=== PATIENT | female | born 1995 | race African-American/Black ===

== ENCOUNTER 2021-10-04 09:46 | Inpatient (IN) | payer BC, SELFPAY ==
[2021-10-04 10:20] LABS: BHCG - Serum Negative (NEGATIVE); Pregs Control Bar Appear? YES (CONTROL BAR)
[2021-10-04 10:21] LABS: Pregs Control Background? CLEAR/WHITE (CLR/WHITE)
[2021-10-04 10:24] LABS: #Lymphocytes 1.1 thou/uL (1.20-3.40); #Monocytes 0.4 thou/uL (0.11-0.59); #Neutrophils 4.6 thou/uL (1.40-6.50); %Basophils 0.1 % (0.0-1.0); %Eosinophils 0.2 % (0.0-10.0); %Lymphocytes 18.4 % (21.0-51.0); %Monocytes 5.7 % (0.0-10.0); %Neutrophils 75.6 % (42.0-75.0); Mean Corpuscular Hemoglobin 22.9 pg (27.0-31.0); Mean Corpuscular Volume 76.4 fL (78.0-98.0); Mean Platelet Volume 10.3 fL (7.4-10.4); Platelet Count 255 thou/uL (130-400); RBC Distribution Width 14.5 % (11.5-14.5); Red Blood Cell (RBC) Count 4.38 mill/uL (4.20-5.40); White Blood Cell (WBC) Count 6.1 thou/uL (4.8-10.8)
[2021-10-04 10:35] LABS: ALT (SGPT) 285 U/L (8-55); AST (SGOT) 339 U/L (5-34); Albumin 4.2 g/dL (3.5-5.0); Alkaline Phosphatase 165 U/L (40-110); Anion Gap 15 mmol/L (10-20); BUN (Urea Nitrogen) 8 mg/dL (7.0-18.7); Bilirubin, Total 0.9 mg/dL (0.2-1.2); Calc. Creatinine Clearance 0 mL/min (70-130); Calcium 9.4 mg/dL (7.8-10.44); Carbon Dioxide 22 mmol/L (22-29); Chloride 104 mmol/L (98-107); Estimated GFR 115; Globulin 3.6 g/dL (2.4-3.5); Glucose 106 mg/dL (70-105); Lipase 33 U/L (8-78); Potassium 4.2 mmol/L (3.5-5.1); Protein, Total 7.8 g/dL (6.0-8.3); Sodium 137 mmol/L (136-145)
[2021-10-04 11:22] LABS: Hypochromia SLIGHT = 6-15 cells (100X) (0-5/hpf); MDiff Complete? YES; Microcytosis SLIGHT = 6-15 cells (100X) (0-5/hpf); Platelet Morphology Comment Appears Adequate; Polychromasia SLIGHT = 2-3 cells (100X) (0-2/hpf)
[2021-10-04 11:29] LABS: Bilirubin Negative (Negative); Blood, Urine Negative (Negative); Clarity Clear (Clear); Glucose, Urine (Dipstick) Normal (Negative); Ketone, Urine Negative (Negative); Leukocyte Negative Leu/uL (Negative); Nitrite Negative (Negative); Protein, Urine (Dipstick) 10 mg/dL (Neg-Trace); Specific Gravity, Urine 1.025 (1.002-1.036); Urobilinogen 6 mg/dL (Less than 2)
[2021-10-04] MEDS ORDERED: Iopamidol-370 76% 500 ML 1 ML ONE (11:45)
[2021-10-04] MEDS ORDERED: Morphine 4 MG/ML VIAL ONE (12:18)
[2021-10-04] MEDS ORDERED: Ondansetron PF 4 MG/2 ML Vial ONE (12:18)
[2021-10-04] MEDS ORDERED: Ondansetron ODT 4 MG TAB PO PRN (14:56)
[2021-10-04] MEDS ORDERED: Ondansetron PF 4 MG/2 ML Vial IVP PRN (14:56)
[2021-10-04] MEDS ORDERED: Senokot S 8.6-50 MG TAB PO PRN (14:56)
[2021-10-04] MEDS ORDERED: Acetaminophen 325 MG TAB PO PRN (14:56)
[2021-10-04] MEDS ORDERED: Amlodipine 5 MG TAB PO SCH (15:30)
[2021-10-04 15:32] LABS: SARS-CoV-2 NAA Rapid Test Not Detected (NotDetected)
[2021-10-04] MEDS ORDERED: Amlodipine 5 MG TAB ONE (18:49)
[2021-10-04] MEDS: Sodium Chloride 0.9% 1,000 ML IV SCH (18:55)
[2021-10-04 19:59] VITALS: BMI 41.1
[2021-10-04] MEDS: Pantoprazole 40 MG VIAL IVP SCH (20:28)
[2021-10-05] MEDS: Sodium Chloride 0.9% 1,000 ML IV SCH ×2 (00:45→15:55)
[2021-10-05] MEDS: Ketorolac Tromethamine 30 MG/ML VIAL IVP PRN ×2 (06:02→15:55)
[2021-10-05 06:51] LABS: #Eosinphils 0.1 thou/uL (0.0-0.7); #Lymphocytes 1.6 thou/uL (1.20-3.40); #Monocytes 0.3 thou/uL (0.11-0.59); #Neutrophils 1.7 thou/uL (1.40-6.50); %Basophils 1.2 % (0.0-1.0); %Eosinophils 1.5 % (0.0-10.0); %Monocytes 8.4 % (0.0-10.0); %Neutrophils 46.9 % (42.0-75.0); Hemoglobin 10.1 g/dL (12.0-16.0); Mean Corpuscular HGB CONC 30.6 g/dL (32.0-36.0); Mean Corpuscular Volume 75.1 fL (78.0-98.0); Mean Platelet Volume 10.5 fL (7.4-10.4); Platelet Count 233 thou/uL (130-400); RBC Distribution Width 14.4 % (11.5-14.5); Red Blood Cell (RBC) Count 4.37 mill/uL (4.20-5.40); White Blood Cell (WBC) Count 3.7 thou/uL (4.8-10.8)
[2021-10-05 06:55] LABS: ALT (SGPT) 370 U/L (8-55); AST (SGOT) 218 U/L (5-34); Albumin 3.9 g/dL (3.5-5.0); Alkaline Phosphatase 156 U/L (40-110); Bilirubin, Direct 0.3 mg/dL (0.1-0.3); Bilirubin, Total 0.4 mg/dL (0.2-1.2); Protein, Total 7.5 g/dL (6.0-8.3)
[2021-10-05 06:56] LABS: Anion Gap 13 mmol/L (10-20); BUN (Urea Nitrogen) 5 mg/dL (7.0-18.7); Calc. Creatinine Clearance 157 mL/min (70-130); Calcium 9.1 mg/dL (7.8-10.44); Carbon Dioxide 23 mmol/L (22-29); Chloride 106 mmol/L (98-107); Estimated GFR 121; Glucose 85 mg/dL (70-105); Iron 40 ug/dL (50-170); Iron Binding Capacity, Total 406 mcg/dL (265-497); Potassium 3.8 mmol/L (3.5-5.1); Sodium 138 mmol/L (136-145)
[2021-10-05 07:37] LABS: HBCM Index 0.07 S/CO (0-0.79); HBSAg Index 0.24 S/CO (0-0.99); Hep A IgM AB Non-Reactive (NonReactive); Hep A IgM S/CO 0.17 S/CO (0-0.79); Hep B Surf Ag Non-Reactive S/CO (NonReactive); Hep C IgG Ab Non-Reactive (NonReactive); Hep C Index 0.09 S/CO (0-0.79); Hepatitis B Core IgM Abs Non-Reactive (NonReactive)
[2021-10-05] MEDS ORDERED: Amlodipine 5 MG TAB PO SCH (09:00)
[2021-10-05] MEDS: Pantoprazole 40 MG VIAL IVP SCH ×2 (09:29→21:19)
[2021-10-05] MEDS: Ferrous Sulfate 325 MG TAB PO SCH (09:31)
[2021-10-05] MEDS: Morphine 2 MG/ML VIAL SLOW IVP PRN (17:53)
[2021-10-06] MEDS: Morphine 2 MG/ML VIAL SLOW IVP PRN ×3 (00:02→23:33)
[2021-10-06] MEDS: Ferrous Sulfate 325 MG TAB PO SCH (08:08)
[2021-10-06] MEDS: Amlodipine 10 MG TAB PO SCH (08:08)
[2021-10-06] MEDS: Pantoprazole 40 MG VIAL IVP SCH ×2 (08:08→21:29)
[2021-10-06] MEDS ORDERED: Bupivacaine/Epinephrine 0.25% 30 ML VIAL ONE (12:08)
[2021-10-06] MEDS ORDERED: Iopamidol 30 ML ONE (12:38)
[2021-10-06] MEDS ORDERED: Indomethacin 50 MG SUPP ONE (12:39)
[2021-10-06] MEDS ORDERED: Levofloxacin 500 mg/D5W 100 ml Premix Bag ONE (13:12)
[2021-10-06 13:20] LABS: #Eosinphils 0.1 thou/uL (0.0-0.7); #Lymphocytes 1.5 thou/uL (1.20-3.40); #Monocytes 0.4 thou/uL (0.11-0.59); #Neutrophils 3.8 thou/uL (1.40-6.50); %Basophils 0.2 % (0.0-1.0); %Eosinophils 1.1 % (0.0-10.0); %Monocytes 7.3 % (0.0-10.0); %Neutrophils 65.3 % (42.0-75.0); Hemoglobin 10.4 g/dL (12.0-16.0); Mean Corpuscular HGB CONC 30.8 g/dL (32.0-36.0); Mean Corpuscular Volume 74.7 fL (78.0-98.0); Mean Platelet Volume 9.7 fL (7.4-10.4); Platelet Count 248 thou/uL (130-400); RBC Distribution Width 14.2 % (11.5-14.5); Red Blood Cell (RBC) Count 4.51 mill/uL (4.20-5.40); White Blood Cell (WBC) Count 5.9 thou/uL (4.8-10.8)
[2021-10-06] MEDS ORDERED: SUGAMMADEX SODIUM 200 MG/2 ML VIAL ONE (13:25)
[2021-10-06] MEDS ORDERED: Famotidine/PF 20 mg/2ml Vial ONE (13:25)
[2021-10-06] MEDS ORDERED: fentaNYL Citrate/PF 100 MCG/2 ML SYRINGE ONE ×2 (13:25)
[2021-10-06] MEDS ORDERED: Rocuronium Bromide 10 MG/ML (10ML VIAL) ONE ×2 (13:30→14:00)
[2021-10-06] MEDS ORDERED: Lidocaine 1% PF 5 ML VIAL ONE (13:30)
[2021-10-06] MEDS ORDERED: Metoclopramide HCl 10 MG/2 ML VIAL ONE (13:30)
[2021-10-06] MEDS ORDERED: PROPOFOL 200 MG/20 ML VIAL ONE (13:30)
[2021-10-06 13:35] LABS: Anion Gap 12 mmol/L (10-20); BUN (Urea Nitrogen) 6 mg/dL (7.0-18.7); Calc. Creatinine Clearance 149 mL/min (70-130); Calcium 9.6 mg/dL (7.8-10.44); Carbon Dioxide 25 mmol/L (22-29); Chloride 104 mmol/L (98-107); Estimated GFR 113; Glucose 77 mg/dL (70-105); Potassium 3.8 mmol/L (3.5-5.1); Sodium 137 mmol/L (136-145)
[2021-10-06 13:37] LABS: ALT (SGPT) 232 U/L (8-55); AST (SGOT) 68 U/L (5-34); Albumin 4.2 g/dL (3.5-5.0); Alkaline Phosphatase 158 U/L (40-110); Bilirubin, Direct 0.2 mg/dL (0.1-0.3); Bilirubin, Total 0.4 mg/dL (0.2-1.2)
[2021-10-06 13:39] LABS: Hypochromia SLIGHT = 6-15 cells (100X) (0-5/hpf); MDiff Complete? YES; Microcytosis SLIGHT = 6-15 cells (100X) (0-5/hpf); Ovalocytes SLIGHT = 2-5 cells (100X) (0-1/hpf); Platelet Morphology Comment Appears Adequate; Polychromasia SLIGHT = 2-3 cells (100X) (0-2/hpf)
[2021-10-06] MEDS ORDERED: Ondansetron PF 4 MG/2 ML Vial ONE (14:00)
[2021-10-06] MEDS ORDERED: Ketorolac Tromethamine 30 MG/ML VIAL ONE (14:00)
[2021-10-06] MEDS ORDERED: Promethazine HCl 25 MG/ML VIAL IM PRN (15:33)
[2021-10-06] MEDS ORDERED: Promethazine HCl 25 MG/ML VIAL IVPB PRN (15:33)
[2021-10-06] MEDS ORDERED: Ondansetron HCl/PF 4 MG/2 ML Vial IVP PRN (15:33)
[2021-10-06] MEDS ORDERED: Fentanyl 100 MCG/2 ML VIAL ONE (15:38)
[2021-10-06] MEDS ORDERED: Labetalol HCl 100 MG/20 ML VIAL ONE (15:42)
[2021-10-06] MEDS: Ketorolac Tromethamine 30 MG/ML VIAL IVP PRN (21:29)
[2021-10-07] MEDS ORDERED: Dicyclomine 10 MG CAP PO SCH (00:30)
[2021-10-07] MEDS: Ketorolac Tromethamine 30 MG/ML VIAL IVP PRN (05:43)
[2021-10-07 06:24] LABS: #Lymphocytes 1.2 thou/uL (1.20-3.40); #Monocytes 0.4 thou/uL (0.11-0.59); #Neutrophils 4.5 thou/uL (1.40-6.50); %Basophils 0.5 % (0.0-1.0); %Eosinophils 0.7 % (0.0-10.0); %Lymphocytes 18.8 % (21.0-51.0); %Monocytes 7.1 % (0.0-10.0); %Neutrophils 72.9 % (42.0-75.0); Hemoglobin 9.4 g/dL (12.0-16.0); Mean Corpuscular HGB CONC 31.2 g/dL (32.0-36.0); Mean Corpuscular Hemoglobin 23.3 pg (27.0-31.0); Mean Corpuscular Volume 74.6 fL (78.0-98.0); Mean Platelet Volume 10.1 fL (7.4-10.4); Platelet Count 242 thou/uL (130-400); RBC Distribution Width 14.1 % (11.5-14.5); Red Blood Cell (RBC) Count 4.01 mill/uL (4.20-5.40); White Blood Cell (WBC) Count 6.2 thou/uL (4.8-10.8)
[2021-10-07 06:53] LABS: ALT (SGPT) 179 U/L (8-55); AST (SGOT) 66 U/L (5-34); Albumin 3.9 g/dL (3.5-5.0); Alkaline Phosphatase 136 U/L (40-110); Bilirubin, Direct 0.2 mg/dL (0.1-0.3); Bilirubin, Total 0.4 mg/dL (0.2-1.2); Protein, Total 7.4 g/dL (6.0-8.3)
[2021-10-07] MEDS: Ferrous Sulfate 325 MG TAB PO SCH (08:20)
[2021-10-07] MEDS: Morphine 2 MG/ML VIAL SLOW IVP PRN (08:21)
[2021-10-07] MEDS: Pantoprazole 40 MG VIAL IVP SCH (08:21)
[2021-10-07] MEDS: Amlodipine 10 MG TAB PO SCH (08:21)
[2021-10-07 11:59] VITALS: BP 155/95; TEMP 99.1
== END 2021-10-07 13:33 | disposition home or self-care (01) | DRG 418 ==
LOC: ERS 09:46 → ERHOLD 14:22 → T4-A 19:40
PROVIDERS: ADMIT Internal Medicine; ATTEND Internal Medicine
PROC: 0FT44ZZ Resection of Gallbladder, Percutaneous Endoscopic Approach (ICD-10-PCS; principal; 2021-10-06)
PROC: 0FC98ZZ Extirpation of Matter from Common Bile Duct, Via Natural or Artificial Opening Endoscopic (ICD-10-PCS; 2021-10-06)
PROC: BF101ZZ Fluoroscopy of Bile Ducts using Low Osmolar Contrast (ICD-10-PCS; 2021-10-06)
DX: K80.62 Calculus of gallbladder and bile duct with acute cholecystitis without obstruction (principal); Z68.41 Body mass index [BMI] 40.0-44.9, adult; Z20.822 Contact with and (suspected) exposure to COVID-19; D50.8 Other iron deficiency anemias; E66.01 Morbid (severe) obesity due to excess calories; J45.909 Unspecified asthma, uncomplicated; I10 Essential (primary) hypertension; F17.210 Nicotine dependence, cigarettes, uncomplicated; R74.01 Elevation of levels of liver transaminase levels; I16.0 Hypertensive urgency; Z91.19 Patient's noncompliance with other medical treatment and regimen; Z83.3 Family history of diabetes mellitus; Z82.49 Family history of ischemic heart disease and other diseases of the circulatory system
CPT/HCPCS: 36415; 74177; 74181; 74330; 80048; 80053; 80074; 80076; 81003; 83540; 83550; 83690; 84703; 85025; 88304; 94760; 96374; 96375; C1713; C9113; J1885; J1956; J2270; J2405; J2704; J2765; J3010; J7050; Q9967; S0028; U0002